=== PATIENT | female | born 1990 | race Asian ===

== ENCOUNTER 2017-01-25 20:08 | Emergency (ER) | payer OTHER ==
[~2017-01-25] VITALS: Ht 157.5 cm; Wt 96.6 kg
[2017-01-25 20:19] VITALS: TEMP 98.8
[2017-01-25 20:45] LABS: PLATELET COUNT 162 K/uL (152-353)
[2017-01-25 20:52] LABS: POTASSIUM 3.5 mmol/L (3.6-5.2); SODIUM 135 mmol/L (136-145)
[2017-01-25 21:59] VITALS: BP 142/78
== END 2017-01-25 22:10 | disposition home or self-care (01) ==
LOC: ED 20:08
PROVIDERS: Family Medicine
DX: M25.562 Pain in left knee (principal); I89.0 Lymphedema, not elsewhere classified; I83.892 Varicose veins of left lower extremity with other complications
CPT/HCPCS: 36415; 80053; 85027; 85379; 96374; 99284; J1885

== ENCOUNTER 2017-01-27 11:33 | Emergency (ER) | payer OTHER ==
[~2017-01-27] VITALS: Ht 157.5 cm; Wt 96.6 kg
[2017-01-27 12:35] LABS: PLATELET COUNT 147 K/uL (152-353)
[2017-01-27 12:50] LABS: POTASSIUM 3.2 mmol/L (3.6-5.2); SODIUM 133 mmol/L (136-145)
[2017-01-27 13:00] VITALS: TEMP 98.2
[2017-01-27 13:55] VITALS: BP 125/80
== END 2017-01-27 14:10 | disposition home or self-care (01) ==
LOC: ED 11:33
PROVIDERS: Emergency Medicine
DX: L03.116 Cellulitis of left lower limb (principal)
CPT/HCPCS: 36415; 80053; 81000; 81025; 85027; 96365; 96375; 99284; J2270; J2543

== ENCOUNTER 2017-01-28 17:44 | Inpatient (IN) | payer OTHER ==
[~2017-01-28] VITALS: Ht 157.5 cm; Wt 94.9 kg
[2017-01-28 18:30] VITALS: BP 122/86; TEMP 99.8
[2017-01-28 19:01] LABS: PLATELET COUNT 169 K/uL (152-353)
[2017-01-28 19:46] LABS: SODIUM 135 mmol/L (136-145)
[2017-01-29] VITALS (7 sets, daily range): BP systolic 100–137; BP diastolic 57–79; TEMP 98.1–100.1; Ht 157.5 cm; Wt 94.9 kg
[2017-01-29 06:04] LABS: SODIUM 136 mmol/L (136-145)
[2017-01-29 06:06] LABS: PLATELET COUNT 174 K/uL (152-353)
[2017-01-30 00:23] VITALS: BP 104/66; TEMP 98.6
[2017-01-30 04:00] VITALS: BP 123/76; TEMP 98.8
[2017-01-30 05:36] LABS: POTASSIUM 3.8 mmol/L (3.6-5.2); SODIUM 137 mmol/L (136-145)
[2017-01-30 05:52] LABS: PLATELET COUNT 181 K/uL (152-353)
[2017-01-30 08:00] VITALS: BP 122/81; TEMP 98.2
[2017-01-30 12:00] VITALS: BP 124/73; TEMP 98.6
[2017-01-30 16:14] VITALS: BP 118/75; TEMP 98.5
[2017-01-30 20:00] VITALS: BP 121/73; TEMP 98.9
[2017-01-31] VITALS: BP 111/59; TEMP 99.4
[2017-01-31 04:00] VITALS: BP 117/71; TEMP 98.6
--- NOTE | 2017-01-31 04:30 | NUR ---
01/31/17 0430 WARM COMPRESS APPLIED TO LLE TOLERATED WELL.CC
[2017-01-31 06:34] LABS: PLATELET COUNT 195 K/uL (152-353)
[2017-01-31 06:42] LABS: POTASSIUM 3.6 mmol/L (3.6-5.2); SODIUM 135 mmol/L (136-145)
[2017-01-31 08:00] VITALS: BP 111/63; TEMP 98.6
--- NOTE | 2017-01-31 11:54 | NUR ---
CALLED TO PT'S ROOM. PT STATING IV OUT OF HAND. IV OBSERVED LAYING ON BED. PT STATING TO WAIT UNTIL SHE KNOWS FROM DOCTOR IF SHE WILL GO HOME TODAY OR NOT. I INFORMED HER I CAN WAIT ONLY AN HOUR.
[2017-01-31 12:00] VITALS: BP 113/60
[2017-01-31 16:00] VITALS: BP 117/59; TEMP 98.7
[2017-01-31 20:00] VITALS: BP 135/80; TEMP 98.7
[2017-02-01 00:20] VITALS: BP 116/72; TEMP 98
[2017-02-01 04:00] VITALS: BP 143/85; TEMP 99.3
--- NOTE | 2017-02-01 04:06 | NUR ---
01/31/17 2490 WARM COMPRESS APPLIED TO LLE TOLERATED WELL.CC
[2017-02-01 05:50] LABS: POTASSIUM 3.6 mmol/L (3.6-5.2); SODIUM 138 mmol/L (136-145)
[2017-02-01 06:22] LABS: PLATELET COUNT 222 K/uL (152-353)
[2017-02-01 08:00] VITALS: BP 127/68; TEMP 98.8
--- NOTE | 2017-02-01 13:11 | NUR ---
1300 PT LEFT VIA WC WITH FAMILY. NO ACUTE DISTRESS NOTED
== END 2017-02-01 13:00 | disposition home or self-care (01) | DRG 603 ==
LOC: ED 17:44 → MED/SURG 19:20
PROVIDERS: Internal Medicine; ADMIT Family Medicine
DX: L03.116 Cellulitis of left lower limb (principal); I87.2 Venous insufficiency (chronic) (peripheral); B02.9 Zoster without complications
CPT/HCPCS: 36415; 80048; 80053; 81000; 82553; 83735; 83785; 84100; 85027; 85651; 87040; 96372; 99283; J1200; J1644; J1885

== ENCOUNTER 2020-08-03 16:45 | Emergency (ER) | payer OTHER ==
[~2020-08-03] VITALS: Ht 157.5 cm; Wt 94.8 kg
[2020-08-03 16:55] VITALS: TEMP 97.7
[2020-08-03 17:51] LABS: PLATELET COUNT 175 K/uL (152-353)
[2020-08-03 17:58] LABS: POTASSIUM 3.4 mmol/L (3.6-5.2)
[2020-08-03 21:05] VITALS: BP 138/60
== END 2020-08-03 21:10 | disposition home or self-care (01) ==
LOC: ED 16:45
PROVIDERS: Emergency Medicine Emergency Medical Services
DX: L03.115 Cellulitis of right lower limb (principal); Z03.818 Encounter for observation for suspected exposure to other biological agents ruled out
CPT/HCPCS: 80053; 83605; 85027; 87040; 87077; 87185; 87186; 87205; 87635; 96360; 96361; 96365; 96366; 96375; 99284; J1200; J1956; J2543; U0003

== ENCOUNTER 2020-08-04 10:31 | Outpatient (CLI) | payer OTHER | END 2020-08-04 21:32 | disposition home or self-care (01) | LOC: US 10:31 | PROVIDERS: ATTEND Family Medicine | DX: L03.90 Cellulitis, unspecified (principal); I73.9 Peripheral vascular disease, unspecified; Z68.38 Body mass index [BMI] 38.0-38.9, adult; M79.604 Pain in right leg ==

== ENCOUNTER 2020-09-27 20:46 | Observation (INO) | payer OTHER ==
[~2020-09-27] VITALS: Ht 157.5 cm; Wt 97.2 kg
[2020-09-27 20:50] VITALS: BP 116/56; TEMP 99.9
[2020-09-27 21:00] VITALS: BP 102/60
[2020-09-27 21:30] VITALS: BP 118/47
[2020-09-27 21:35] LABS: PLATELET COUNT 130 K/uL (152-353)
[2020-09-27 21:45] LABS: POTASSIUM 3.7 mmol/L (3.6-5.2)
[2020-09-27 21:59] LABS: PARTIAL THROMBOPLASTIN TIME 31.2 SECONDS (24.5-33.6)
[2020-09-27 22:30] VITALS: BP 108/62
[2020-09-27 23:27] VITALS: BP 105/43; TEMP 99.1; Ht 157.5 cm; Wt 97.2 kg
--- NOTE | 2020-09-27 23:41 | NUR ---
09/27/20 AT 2310 PATIENT ADMITTED TO ROOM #1111 VIA WHEELCHAIR FROM THE ER FOR CELLULITIS OF RIGHT LOWER EXTREMITY, RULE OUT DVT. PATIENT IS ALERT AND ORIENTED X 3, SKIN WARM AND DRY. PATIENT STATES SHE HAS BEEN HAVING EPISODES OF CELLULITIS OF BLE, ALTERNATING LEGS OVER THE PAST FEW YEARS. PATIENT C/O PAIN, ITCHING AND EDEMA OF THE RIGHT LOWER EXTREMITY FROM THE GROIN AREA DOWN. THIS PARTICULAR EPISODE BEGAN ON Monday09/27/20 AM WHEN SHE WOKE UP THIS AM, WITH PAIN. NO REDNESS IS NOTED, AND NO OPEN AREAS NOTED. EDEMA AND RIGHT LEG SLIGHTY WARM TO TOUCH. PATIENT ORIENTED TO ROOM AND CALL SYSTEM AND VERBALIZES UNDERSTANDING OF ALL INFORMATION GIVEN. PATIENT DENIES ANY QUESTIONS AT THIS TIME. CALL LIGHT WITHIN REACH AND WILL CONTINUE TO MONITOR.
--- NOTE | 2020-09-27 23:47 | NUR ---
09/27/20 AT 2345 PATIENT DENIES TAKING ANY DAILY MEDICATIONS AT THIS TIME. NO KNOWN DRUG ALLERGIES AND DR. BAHMAN PRIETO IS HER PRIMARY CARE PHYSICIAN.
[2020-09-28 04:00] VITALS: BP 101/54; TEMP 97.6
[2020-09-28 08:00] VITALS: BP 108/54; TEMP 98.7
--- NOTE | 2020-09-28 08:10 | NUR ---
LEFT -CIRCUMFERENCE AT MID-THIGH} 500CM -CIRCUMFERENCE AT MID-CALF} 366CM -CIRCUMFERENCE MID-FOOT} 210CM WARMTH NOTED TO POSTERIOR THIGH AND CALF, NO REDNESS NOTED. RIGHT -CIRCUMFERENCE AT MID-THIGH} 540CM -CIRCUMFERENCE AT MID-CALF} 380CM -CIRCUMFERENCE MID-FOOT} 226CM
--- NOTE | 2020-09-28 08:50 | NUR ---
PER [facility] IN RADIOLOGY, NO TECH AVAILABLE TO PERFORM MRI TODAY OR FOR THE NEXT TWO WEEKS.
[2020-09-28 12:00] VITALS: BP 96/53; TEMP 99
[2020-09-28 16:00] VITALS: BP 100/38; BP 110/60; TEMP 98.2
[2020-09-28 20:09] VITALS: BP 102/59; TEMP 98.7
--- NOTE | 2020-09-28 20:40 | NUR ---
PT COMPLAINS OF PAIN TO THE RIGHT LOWER EXTERMITY AT THIS TIME. DILAUDID 1 MG IVP AND ZOFRAN 4 MG IVP GIVEN AT THIS TIME. IV SITE FLUSHED PRIOR TO MEDICATION ADMINISTRATION AND AFTER WITHOUT DIFFUCULTY. AT THE IV SITE AT THIS TIME. NO EDEMA, ERRYTHEMA, OR DRAINAGE AT THE IV SITE AT THIS TIME. PT. DENIES NO PAIN OR BURNING AT SITE.
--- NOTE | 2020-09-28 21:09 | NUR ---
PT TOLERATED DILAUDID 1 MG IVP AND ZOFRAN 4 MG IVP WELL AT THIS TIME. PT. REPORTS SHE IS FEELING BETTER. PT IS SITTING UP IN THE BED DRAWING AT THIS TIME.
[2020-09-29 00:01] VITALS: BP 87/59; TEMP 98.8
[2020-09-29 04:15] VITALS: BP 108/72; TEMP 98.5
[2020-09-29 08:00] VITALS: BP 99/57; TEMP 98.4
--- NOTE | 2020-09-29 09:00 | NUR ---
PATIENT BEGAN VOMITING. PATIENT ASKED FOR PAIN MEDICATION AND NAUSEA MEDICATION. GIVEN PER MD ORDERS
--- NOTE | 2020-09-29 09:55 | NUR ---
PATIENT VOMITED AGAIN. NOTIFIED.
[2020-09-29 12:00] VITALS: BP 109/63; TEMP 98.2
[2020-09-29 12:39] LABS: PLATELET COUNT 128 K/uL (152-353)
[2020-09-29 12:54] LABS: POTASSIUM 3.5 mmol/L (3.6-5.2)
--- NOTE | 2020-09-29 13:30 | NUR ---
AT BEDSIDE. WEDGE AND GINGERALE PROVIDED. MD ORDERED 1 LITER OF NORMAL SALINE AT 200ML/HR AND RECHECK VITALS AFTER.
--- NOTE | 2020-09-29 14:30 | NUR ---
NOTIFIED OF VITAL SIGNS.
[2020-09-29 16:00] VITALS: BP 115/70; TEMP 97.7
[2020-09-29] MEDS ORDERED: 904272561 PO (17:11)
--- NOTE | 2020-09-29 18:42 | NUR ---
DISCHARGE ORDERS RECEIVED FOR PATIENT. PATIENT EDUCATED PER DISCHARGE ORDERS. PATIENT VERBALIZED UNDERSTANDING. APPOINTMENT CARD AND DISCHARGE INSTRUCTIONS PROVIDED TO PATIENT.
== END 2020-09-29 18:58 | disposition home or self-care (01) ==
LOC: ED 20:46 → MED/SURG 21:45
PROVIDERS: ADMIT Hospitalist; ATTEND Internal Medicine
DX: L03.116 Cellulitis of left lower limb (principal)
CPT/HCPCS: 36415; 80048; 80053; 83605; 85027; 85379; 85610; 85730; 87040; 87635; 94760; 96360; 96361; 96365; 96366; 96367; 96372; 96375; 99220; 99284; G0378; J1170; J1650; J1885; J2405; J2543; J3370; J3490; U0003

== ENCOUNTER 2021-03-08 14:50 | Observation (INO) | payer OTHER ==
[~2021-03-08] VITALS: Ht 157.5 cm; Wt 94.1 kg
[2021-03-08 14:50] VITALS: BP 133/76; TEMP 98.3
[~2021-03-08 14:50] MED LIST: 904272561 PO
[2021-03-08 16:11] LABS: PLATELET COUNT 137 K/uL (152-353)
[2021-03-08 16:15] VITALS: BP 130/75
[2021-03-08 16:26] LABS: PARTIAL THROMBOPLASTIN TIME 27.6 SECONDS (24.5-33.6)
[2021-03-08 16:45] LABS: POTASSIUM 3.4 mmol/L (3.6-5.2)
[2021-03-08 17:15] VITALS: BP 128/79
[2021-03-08 20:00] VITALS: BP 109/49; TEMP 100.8
[2021-03-09] VITALS (7 sets, daily range): BP systolic 73–110; BP diastolic 40–51; TEMP 98.5–100.8; Ht 157.5 cm; Wt 94.1 kg
[2021-03-09 05:15] LABS: PLATELET COUNT 117 K/uL (152-353)
[2021-03-09 05:32] LABS: POTASSIUM 3.9 mmol/L (3.6-5.2)
--- NOTE | 2021-03-09 08:35 | NUR ---
C/O PAINL LEG AT SCALE OF 8. MORPHINE 4MG GIVEN IVP.
--- NOTE | 2021-03-09 09:15 | NUR ---
PAIN DECREASED TO SCALE OF 2.
--- NOTE | 2021-03-09 13:06 | NUR ---
C/O LEG ITCHING BENADRYL 25MG GIVE IVP.
--- NOTE | 2021-03-09 19:05 | NUR ---
C/O PAIN L LEG MORPINE 4MG GIVEN IVP.
[2021-03-10] VITALS (7 sets, daily range): BP systolic 104–138; BP diastolic 46–81; TEMP 97.9–100.6
--- NOTE | 2021-03-10 09:30 | NUR ---
PATIENT COMPLAINTS OF ITCHING TO LLE. PRN BENADRYL GIVEN PER MD ORDERS.
[2021-03-10 09:49] LABS: PLATELET COUNT 122 K/uL (152-353)
[2021-03-11] VITALS: BP 109/73; TEMP 100.6
--- NOTE | 2021-03-11 04:09 | NUR ---
LATE ENTRY: PATIENT WAS IN PAIN ON MY ASSESMENT. PATIENT WAS GIVEN MORPHINE AND 30 MINUTES LATER GIVEN BENADRYL BECAUSE SHE SAID, " I ITCH ALL OVER." AT MIDNIGHT PATIENT HAD A TEMP OF 100.6. PATIENT WAS GIVEN TYANOL AND LATER TORADOL FOR PAIN AND FEVER. PATIENT CURRENT TEMP IS 98.8
[2021-03-11 04:18] VITALS: BP 109/55; TEMP 98.6
[2021-03-11 04:41] LABS: PLATELET COUNT 110 K/uL (152-353)
[2021-03-11 08:00] VITALS: BP 116/60; TEMP 98.5
[2021-03-11 12:00] VITALS: BP 112/54; TEMP 98.8
== END 2021-03-11 16:00 | disposition home or self-care (01) ==
LOC: ED 14:53 → MED/SURG 17:25
PROVIDERS: Emergency Medicine Emergency Medical Services; Internal Medicine; ADMIT Internal Medicine Endocrinology, Diabetes & Metabolism; ATTEND Internal Medicine Endocrinology, Diabetes & Metabolism
DX: L03.116 Cellulitis of left lower limb (principal); E87.6 Hypokalemia; D72.818 Other decreased white blood cell count; E66.8 Other obesity
CPT/HCPCS: 36415; 80048; 80053; 85027; 85610; 85730; 87040; 87635; 96360; 96361; 96365; 96375; 99220; 99284; G0378; J1200; J1650; J1885; J2270; J2405; J3370; J3490; U0003

== ENCOUNTER 2021-03-29 21:16 | Emergency (ER) | payer OTHER ==
[~2021-03-29] VITALS: Ht 157.5 cm; Wt 90.7 kg
[2021-03-29 22:50] VITALS: BP 116/74; TEMP 98.5
== END 2021-03-29 23:00 | disposition home or self-care (01) ==
LOC: ED 21:16
DX: M62.830 Muscle spasm of back (principal); M62.838 Other muscle spasm; V43.53XA Car driver injured in collision with pick-up truck in traffic accident, initial encounter; Y92.89 Other specified places as the place of occurrence of the external cause
CPT/HCPCS: 96372; 99283; J2360

== ENCOUNTER 2021-12-16 09:06 | Emergency (ER) | payer OTHER ==
[~2021-12-16] VITALS: Ht 157.5 cm; Wt 90.7 kg
[2021-12-16 09:10] VITALS: BP 127/79; TEMP 98.5
[2021-12-16] MEDS ORDERED: 904272561 PO (09:25)
== END 2021-12-16 09:49 | disposition home or self-care (01) ==
LOC: ED 09:06
DX: L02.31 Cutaneous abscess of buttock (principal)
CPT/HCPCS: 96372; 99283; J0696

== ENCOUNTER 2021-12-17 18:57 | Emergency (ER) | payer OTHER ==
[~2021-12-17] VITALS: Ht 157.5 cm; Wt 90.7 kg
[2021-12-17 21:04] VITALS: BP 91/48; TEMP 98.9
== END 2021-12-17 21:04 | disposition home or self-care (01) ==
LOC: ED 18:57
PROC: 0H98XZZ Drainage of Buttock Skin, External Approach (ICD-10-PCS; principal; 2021-12-17)
DX: L02.31 Cutaneous abscess of buttock (principal)
CPT/HCPCS: 96372; 99284; J0696; J1885; J2270

== ENCOUNTER 2021-12-20 11:27 | Emergency (ER) | payer OTHER ==
[~2021-12-20] VITALS: Ht 157.5 cm; Wt 90.7 kg
[2021-12-20 11:30] VITALS: TEMP 98
[2021-12-20 12:06] VITALS: BP 110/70
== END 2021-12-20 12:06 | disposition home or self-care (01) ==
LOC: ED 11:27
DX: Z48.01 Encounter for change or removal of surgical wound dressing (principal)
CPT/HCPCS: 99282

== ENCOUNTER 2022-06-21 18:00 | Emergency (ER) | payer OTHER ==
[~2022-06-21] VITALS: Ht 157.5 cm; Wt 86.2 kg
[2022-06-21 18:00] VITALS: BP 111/71; TEMP 99.9
== END 2022-06-21 21:10 | disposition home or self-care (01) ==
LOC: ED 18:04
DX: L03.116 Cellulitis of left lower limb (principal)
CPT/HCPCS: 96372; 96374; 96375; 99283; 99284; J1650; J1885; J2270; J2405

== ENCOUNTER 2022-10-23 08:32 | Observation (INO) | payer OTHER ==
[~2022-10-23] VITALS: Ht 157.5 cm; Wt 86.2 kg
[~2022-10-23 08:32] MED LIST changes: +AMOX875T8 PO; +HYDROCODONE BIT1 TA1 PO; +METH4PAK3 PO
[2022-10-23 08:38] VITALS: BP 100/48; TEMP 97.2
[2022-10-23 09:00] VITALS: BP 99/74
[2022-10-23 09:18] LABS: PLATELET COUNT 209 K/uL (152-353)
[2022-10-23 09:25] LABS: POTASSIUM 3.3 mmol/L (3.6-5.2)
[2022-10-23 10:00] VITALS: BP 101/68
[2022-10-23 13:09] VITALS: BP 105/48; TEMP 98.1
[2022-10-23 16:33] VITALS: BP 105/48; TEMP 98.1; Ht 157.5 cm; Wt 86.2 kg
[2022-10-23 20:00] VITALS: BP 108/62; TEMP 98.8
[2022-10-24 03:37] VITALS: BP 112/65; TEMP 98.4
[2022-10-24 05:31] LABS: PLATELET COUNT 159 K/uL (152-353)
[2022-10-24 05:35] LABS: POTASSIUM 3.6 mmol/L (3.6-5.2)
[2022-10-24 08:00] VITALS: BP 117/68; TEMP 98.5
== END 2022-10-24 10:00 | disposition home or self-care (01) ==
LOC: ED 08:32 → MED/SURG 11:22
PROVIDERS: Family Medicine; ADMIT Internal Medicine; ATTEND Internal Medicine
DX: M54.59 Other low back pain (principal); K52.89 Other specified noninfective gastroenteritis and colitis; E87.6 Hypokalemia; R10.9 Unspecified abdominal pain; R93.89 Abnormal findings on diagnostic imaging of other specified body structures
CPT/HCPCS: 36415; 80053; 80307; 81002; 81025; 82150; 83690; 85027; 96360; 96361; 96366; 96374; 96375; 99221; 99284; G0378; J1885